=== PATIENT | male | born 1945 | race Caucasian/White ===

== ENCOUNTER 2019-02-10 01:34 | Observation (INO) ==
[2019-02-10] MEDS ORDERED: MORPHINE IV ONE (02:04)
[2019-02-10 02:51] LABS: IMM GRAN# 0.02 X1000 (0.0-0.04); IMM GRAN% 0.4 % (0.0-0.5)
[2019-02-10 03:39] LABS: INR 1.07; PROTIME 14.1 Seconds (11.0-16.0)
[2019-02-10 03:45] LABS: PTT HEPARIN PROTOCOL 27.2 Seconds
[2019-02-10 03:49] LABS: BASO# 0.02 X1000 (0.0-0.2); BASO% 0.4 % (0.0-0.8); EOS# 0.39 X1000 (0.0-0.7); EOS% 7.1 % (0.0-10.0); HEMATOCRIT 41.4 % (42.0-52.0); HEMOGLOBIN 14.3 g/dL (14.0-18.0); LYMPH# 1.59 X1000 (1.2-3.4); LYMPH% 29.1 % (20.5-51.1); MCH 31.7 PG (27-31); MCHC 34.5 g/dL (33-37); MCV 91.8 FL (81-99); MPV 10.5 FL (7.4-10.4); NEUT# 2.87 X1000 (1.4-6.5); NEUT% 52.4 % (42.2-75.2); PLT 151 X1000 (130-400); RBC 4.51 XMIL (4.7-6.1); RDW 13.6 % (11.5-14.5); WBC 5.47 X1000 (4.8-10.8)
[2019-02-10 03:53] LABS: AGAP 14; ALB/GLOB RATIO 1.9; ALBUMIN 4.1 g/dL (3.5-5.0); ALKALINE PHOSPHATASE 52 U/L (32-122); BUN 18 mg/dL (8-22); CALCIUM 9.6 mg/dL (8.8-10.2); CHLORIDE 103 mmol/L (98-107); COSMO 289; CREATININE 0.8 mg/dL (0.7-1.2); ESTIMATED GFR > 60; GLUCOSE 128 mg/dL (70-104); GOT 31 U/L (10-34); GPT 35 U/L (10-44); POTASSIUM 3.7 mmol/L (3.5-5.1); SODIUM 143 mmol/L (136-145); TCO2 26 mmol/L (25-35); TOTAL BILIRUBIN 0.77 mg/dL (0.20-1.00); TOTAL PROTEIN 6.3 g/dL (6.3-8.3)
[2019-02-10 03:57] LABS: CK PROFILE 373 U/L (24-204)
--- NOTE | 2019-02-10 04:04 | PROVIDER DOCUMENTATION ---
HPI-General Adult - General Chief Complaint: Chest Pain Stated Complaint: CHEST PAIN HISTORY OR HEART Time Seen by Provider: 02/10/19 01:52 Source: patient Allergies/Adverse Reactions: Patient Allergies Allergy/AdvReac Type Severity Reaction Status Date / Time No Known Allergies Allergy Verified 09/07/14 09:31 Home Medications: Home Medication List Medication Instructions Recorded Confirmed Last Taken Type Losartan [Cozaar] 100 mg PO DAILY 03/18/12 08/31/18 09/07/14 08:00 History Simvastatin 40 mg PO HS 03/18/12 08/31/18 09/06/14 21:00 History Hydroxyzine HCl 25 mg PO DAILY #10 tablet 09/07/14 Unknown Rx Pantoprazole [Protonix] 40 mg PO DAILY@0700 09/07/14 08/31/18 09/07/14 08:00 History Prednisone 10 mg PO DIRECTED #9 tablet 09/07/14 Unknown Rx Aspirin [Lo-Dose Aspirin EC] 81 mg PO DAILY 08/31/18 08/31/18 Unknown History Metformin HCl [Metformin HCl ER] 500 mg PO DAILY 08/31/18 08/31/18 Unknown History Minocycline [Minocin] 100 mg PO DAILY 08/31/18 08/31/18 Unknown History Prasugrel [Effient] 10 mg PO DAILY 08/31/18 08/31/18 Unknown History Tamsulosin HCl 08/31/18 08/31/18 Unknown History Tamsulosin [Flomax] 0.4 mg PO DAILY 08/31/18 08/31/18 Unknown History - History of Present Illness -Gen Adult Nature of Presenting Problems: Pt presents with cp, started tonight, awoke from sleep with pain, substernal, pressure, no radiation, pmh of AMI and stents, pt denies f/c, ibarra, sob, cough, ap, n/v/d. pt is lying in bed in no acute distress. Location of Pain/Injury: reports: chest Pain Radiation: reports: no radiation Quality of Pain: reports: pressure Severity: reports: moderate Onset/Duration: reports: 1-3 hours ago Timing: reports: still present Context/Activities at Onset: reports: none Modifying Factors: improves with: nothing Associated Symptoms: reports: denies symptoms Similar Symptoms Previously?: Yes Recently seen or treated by another doctor?: No Review of Systems - Adult - REVIEW OF SYSTEMS - ADULT Constitutional: reports: no symptoms reported Eyes: reports: no symptoms reported Ears, Nose, Mouth & Throat: reports: no symptoms reported Cardiovascular: reports: see HPI Respiratory: reports: no symptoms reported Gastrointestinal: reports: no symptoms reported Genitourinary: reports: no symptoms reported Musculoskeletal: reports: no symptoms reported Integumentary: reports: no symptoms reported Neurological: reports: no symptoms reported Psychiatric: reports: no symptoms reported Endocrine: reports: no symptoms reported Hematologic/Lymphatic: reports: no symptoms reported Allergic/Immunologic: reports: no symptoms reported All Other Systems: Reviewed and Negative Past History - Adult - PAST MEDICAL HISTORY-ADULT Review of Records: reports: Old Records Reviewed, Nursing Assessment Review, Medications Reviewed, Social history reviewed & non-contributory. Major Childhood Illnesses: reports: denies history Cardiovascular: reports: HTN, hyperlipidemia Respiratory: reports: denies history Gastrointestinal: reports: denies history Obstetrical/Gynecological: reports: denies history Genitourinary: reports: denies history Musculoskeletal: reports: denies history Neurological: reports: denies history Psychiatric: reports: denies history Endocrine/Immune: reports: denies history Other Conditions: reports: denies history - PRIOR SURGERIES/PROCEDURES Surgical/Procedure History: reports: back/neck Physical Exam-General - PHYSICAL EXAM-ADULT Initial Vital Signs Reviewed: Yes - CONSTITUTIONAL General Appearance: appears well - EYES Eyes: PERRL/EOMI - HEAD, EARS, NOSE, MOUTH & THROAT HENMT: normocephalic/atraumatic - NECK Neck: normal inspection - RESPIRATORY Respiratory: lungs clear, no respiratory distress, no accessory muscle use - CARDIOVASCULAR Cardiovascular: regular rate, rhythm - GASTROINTESTINAL (ABDOMEN) Abdominal Exam: normal bowel sounds, non tender, soft - LYMPHATIC Lymphatic: no adenopathy - MUSCULOSKELETAL Back Exam: normal inspection Extremity: normal range of motion - SKIN Integumentary: normal color - NEUROLOGIC Neurologic: grossly normal - PSYCHIATRIC Psych/Mental Status: normal mood/affect Progress - PLAN OF CARE/RESULTS Progress/Plan/Lab Results: Vital Signs - 8 hr 02/10/19 01:42 Temperature 98.3 F Pulse Rate 88 Respiratory Rate 18 Blood Pressure 138/87 O2 Sat by Pulse Oximetry 99 Laboratory Results - last 24 hr 02/10/19 02/10/19 02/10/19 02:25 02:25 02:25 WBC 5.47 RBC 4.51 L Hgb 14.3 Hct 41.4 L MCV 91.8 MCH 31.7 H MCHC 34.5 RDW Std Deviation 13.6 Plt Count 151 MPV 10.5 H Immature Gran % (Auto) 0.4 Neut % (Auto) 52.4 Lymph % (Auto) 29.1 Haakon % (Auto) 11.0 H Eos % (Auto) 7.1 Baso % (Auto) 0.4 Immature Gran # (Auto) 0.02 Neut # (Auto) 2.87 Lymph # (Auto) 1.59 Haakon # (Auto) 0.60 H Eos # (Auto) 0.39 Baso # (Auto) 0.02 PT 14.1 INR 1.07 PTT (Heparin Protocol) 27.2 Sodium 143 Potassium 3.7 Chloride 103 Carbon Dioxide 26 Anion Gap 14 BUN 18 Creatinine 0.8 Estimated GFR/1.73 m2 > 60 BUN/Creatinine Ratio 23 Glucose 128 H Calculated Osmolality 289 Calcium 9.6 Total Bilirubin 0.77 AST 31 ALT 35 Alkaline Phosphatase 52 Troponin T Total Protein 6.3 Albumin 4.1 Globulin 2.2 Albumin/Globulin Ratio 1.9 02/10/19 02:25 WBC RBC Hgb Hct MCV MCH MCHC RDW Std Deviation Plt Count MPV Immature Gran % (Auto) Neut % (Auto) Lymph % (Auto) Haakon % (Auto) Eos % (Auto) Baso % (Auto) Immature Gran # (Auto) Neut # (Auto) Lymph # (Auto) Haakon # (Auto) Eos # (Auto) Baso # (Auto) PT INR PTT (Heparin Protocol) Sodium Potassium Chloride Carbon Dioxide Anion Gap BUN Creatinine Estimated GFR/1.73 m2 BUN/Creatinine Ratio Glucose Calculated Osmolality Calcium Total Bilirubin AST ALT Alkaline Phosphatase Troponin T < 0.010 Total Protein Albumin Globulin Albumin/Globulin Ratio Orders Category Date Time Status cxr [CHEST-1 VIEW] [RAD] Stat Exams 02/10/19 02:02 Taken CBC WITH ELECTRONIC DIFF [HEME] Stat Lab 02/10/19 02:25 Completed CK PROFILE [SP CHEM] Stat Lab 02/10/19 02:25 Results COMPREHENSIVE METABOLIC PANEL [CHEM] Stat Lab 02/10/19 02:25 Results PROTIME WITH INR [COAG] Stat Lab 02/10/19 02:25 Completed PTT HEPARIN PROTOCOL [COAG] Stat Lab 02/10/19 02:25 Completed TROPONIN T Stat Lab 11/22/19 02:25 Completed Morphine Med 02/10/19 02:04 Discontinued 4 mg IV NOW ONE Result Diagrams: 02/10/19 02:25 02/10/19 02:25 Departure - Departure Date of Disposition Decision: 02/10/19 Time of Disposition Decision: 04:57 DIAGNOSIS: Chest pain Qualifiers: Chest pain type: other chest pain Qualified Code(s): R07.89 - Other chest pain; R07.8 - Other chest pain Disposition: HOME 01 Certified Medical Emergency: Emergent Condition: Stable Referrals and Follow-Ups: Aakash Moreno MD [Primary Care Provider] - - Critical Care Note This patient required my direct & personal management of CC.: No Attestation - Physician/ CHARLES Attestation Patient care was provided by Advanced Practice Provider:: No The physician spent face to face time with patient:: Yes Advanced Practice Provider documentation review:: Supervising physician onsite and consulted in the evaluation and care of this patient. The physician did have a face to face encounter with the patient.
[2019-02-10 04:36] LABS: CK INDEX 2.8 (0.0-2.5); CK-MB 10.51 ng/mL (0.0-5.0)
--- NOTE | 2019-02-10 05:03 | EKG Report ---
Test Performed on : 02/10/2019 01:39:43 AM Test Reason : CP Blood Pressure : / mmHG Vent. Rate : 085 BPM Atrial Rate : 086 BPM P-R Int : 000 ms QRS Dur : 074 ms QT Int : 350 ms P-R-T Axes : 000 010 055 degrees QTc Int : 416 ms Accelerated Junctional rhythm. Septal infarct , age undetermined Abnormal ECG When compared with ECG of 31-AUG-2018 13:42, Junctional rhythm. has replaced Atrial fibrillation. Septal infarct is now present Unconfirmed Result
--- NOTE | 2019-02-10 05:35 | Diag Imaging Result Doc PS360 ---
EXAM: CHEST-1 VIEW HISTORY: chest pain TECHNIQUE: Single view COMPARISON: 08/02/2014 FINDINGS: The lungs are well expanded. The heart is not enlarged. The vessels are not distended. There are no infiltrates. No effusion identified. IMPRESSION: Negative exam. Electronically signed by Sandeep Garcia 02/10/2019 5:33 AM
[2019-02-10] MEDS ORDERED: NITROGLYCERIN SL PRN (08:08)
[2019-02-10] MEDS ORDERED: ZOFRAN IV PRN (08:08)
[2019-02-10] MEDS ORDERED: TYLENOL PO PRN (08:08)
[2019-02-10] MEDS ORDERED: PRILOSEC PO SCH (08:08)
[2019-02-10] MEDS ORDERED: ASPIRIN PO SCH (09:00)
[2019-02-10 09:21] LABS: CK INDEX 2.9 (0.0-2.5); CK-MB 9.9 ng/mL (0.0-5.0)
[2019-02-10] MEDS: HUMULIN R SUBQ SCH ×2 (11:47→13:59)
--- NOTE | 2019-02-10 12:11 | HISTORY AND PHYSICAL ---
PRIMARY CARE PHYSICIAN: Dr. Moreno CHIEF COMPLAINT: Chest pain. HISTORY OF PRESENTING ILLNESS: A 73-year-old male with a history of coronary artery disease diabetes mellitus type 2, hypertension, and hyperlipidemia, who presented to emergency department with a 1-day history of having chest pain. He described it as pressure-like and burning and states that it would not subside. The patient was evaluated in the emergency department. He was given morphine, and his chest pain had some improvement. Due to his presenting symptoms, he will require admission for further management. At the time of my examination, patient denied any headache, fever, chills, nausea, vomiting, diarrhea, hemoptysis, melena, or weight changes, but complained of chest pain. PAST MEDICAL HISTORY: Includes coronary artery disease, diabetes mellitus type 2, hypertension, and hyperlipidemia. PAST SURGICAL HISTORY: Coronary stent, hernia repair, and back surgery. ALLERGIES: No known drug allergies. CURRENT MEDICATIONS: 1. Aspirin 81 mg p.o. daily. 2. Hydroxyzine 25 mg p.o. daily. 3. Losartan 100 mg p.o. daily. 4. Metformin 500 mg p.o. daily. 5. Pantoprazole 40 mg p.o. daily. 6. Effient 10 mg p.o. daily. 7. Prednisone 10 mg as directed. 8. Simvastatin 40 mg p.o. at bedtime. 9. Tamsulosin 0.4 mg p.o. daily. SOCIAL HISTORY: No history of smoking. Admits to social alcohol use. Denies any illicit drug use. FAMILY HISTORY: Positive for coronary artery disease in father. REVIEW OF SYSTEMS: Fourteen point review of system as listed in HPI. Other systems negative. PHYSICAL EXAMINATION: GENERAL: Cooperative, friendly male who is resting more comfortably now. VITAL SIGNS: Temperature 98.3 degrees, pulse 88, respiration 18, and blood pressure 138/87. HEENT: Atraumatic, normocephalic. Extraocular movements intact. PERRLA. NECK: Supple. CHEST: Clear to auscultation. CARDIOVASCULAR: Regular rate and rhythm. ABDOMEN: Soft. Positive bowel sounds. EXTREMITIES: No edema. NEUROLOGIC: He is awake, alert, and oriented x3. : No bladder distention. SKIN: Warm. LABORATORIES AND STUDIES: WBCs 5.47, hemoglobin 14.3, hematocrit 41.4, and platelets 151,000. Sodium 143, potassium 3.7, chloride 103, CO2 is 26, BUN is 18, creatinine 0.8, glucose 128, and troponin is 0.010. ASSESSMENT: This is a 73-year-old male with a history of coronary disease, diabetes mellitus type 2, hypertension, and hyperlipidemia, who presented to the emergency department with a 1-day history of having chest pain. We will place the patient for observation for further evaluation and management. 1. Chest pain. 2. Coronary artery disease. 3. Diabetes mellitus type 2. 4. Hypertension. PLAN: 1. We will admit patient to medical floor with telemetry. 2. We will continue with cardiac workup. Check EKG and serial cardiac enzymes. Have patient continue on aspirin. We will use sublingual nitroglycerin and morphine p.r.n. chest pain. 3. We will consult Cardiology. 4. Monitor blood glucose. Put patient on sliding scale insulin regimen. 5. We will restart her home medications, and monitor blood pressure closely. 6. The patient on DVT prophylaxis with SCD's. 7. We will continue to follow and reassess. Make further recommendation based on his clinical course. cc: Derick Stafford MD
[2019-02-10 12:41] VITALS: BP 123/64
[2019-02-10] MEDS ORDERED: MINOCIN PO PRN (15:08)
[2019-02-10 17:03] LABS: DIRECT LDL 77 mg/dL; LIPASE 22 U/L (13-60); URIC ACID 5.7 mg/dL (3.4-7.0)
[2019-02-10 17:26] LABS: CK INDEX 3.2 (0.0-2.5); CK-MB 7.85 ng/mL (0.0-5.0)
--- NOTE | 2019-02-10 18:22 | ECHO REPORT ---
ORDER DATE: 02/10/2019 ECHOCARDIOGRAPHIC MEASUREMENTS: 1. Interventricular septum 1.0. 2. Left ventricular posterior wall 1.0. 3. Diastolic diameter 4.4 4. Left atrium 3.7. 5. Aorta 3.4. SUMMARY OF TWO-DIMENSIONAL IMAGIN. Aortic valve leaflets are trileaflet. 2. Pulmonic valve is normal. 3. Tricuspid valve is normal. 4. Mitral valve is normal. There is mild left atrial enlargement. 5. There is mild mitral regurgitation, mild tricuspid regurgitation. Peak velocity across the tricuspid valve was 2.5 m/sec. 6. Pulmonary artery systolic pressure of 35 mmHg. 7. Peak velocity across the aortic valve less than 2 m/sec by Doppler studies. There is no aortic stenosis or regurgitation. Normal left ventricular cavity size. Estimated ejection fraction of 65%. 8. There is no pericardial effusion or obvious intracardiac mass or thrombus seen. cc: MD Marquise Reid MD
[2019-02-10] MEDS ORDERED: ZOCOR PO SCH (21:00)
[2019-02-10] MEDS ORDERED: ASPIRIN EC PO SCH (21:00)
--- NOTE | 2019-02-11 04:06 | CARDIOLOGY CONSULTATION ---
DATE: 02/10/2019 [facility] - CEFTRIAXONE SODIUM: Hospitalist service. REASON FOR CONSULTATION: Patient with chest pain. PRIMARY LOAD OUT PERSON: Dr. Carney and the [facility]. PRIMARY PHYSICIAN: Dr. Aakash Moreno. CHIEF COMPLAINT: Chest pain. HISTORY: Mr. Gupta is 73 years of age, male who was in his usual state of health. Yesterday, he went to play golf in the morning and at night he went to the country club. At about 7:30 p.m., he ate a dinner of quesadilla. He said that he only ate half of the usual portion, however, there was quite a bit of cheese there. Anyway, he woke up at 1 in the morning complaining of severe substernal chest discomfort that really scared him. It was in the upper part of the chest. It was unlike the pain that he had experienced when he had his stents, particularly very different than the pain that he had after the most recent stent. At any rate, he chose to come into the ER and, of course, they put him in the hospital for more testing. Thus far, they have done 1 EKG at 1:39 in the morning that shows sinus rhythm with a first-degree AV block and question of septal scar. The computer, unfortunately, is calling it to be something else, but is just sinus rhythm. A chest x-ray was done in the ER that showed a negative exam. The troponin levels have been checked and they are twice negative. CPKs and CK-MB fraction were 373 and 337. LFTs are normal. The patient is feeling better. I am seeing him at about 1:30 p.m. He is not having any more pains. PAST CARDIAC HISTORY: Positive for coronary heart disease. He states that in 2001, when he was living in [place], [place], he developed pains that, at that time, he thought were indigestion- like pains, he ended up having a stent to the circumflex coronary artery in the year 2001. Then, last year he developed exertional chest discomfort and they took him to the cath lab tech and Dr. Eric Carney did a stent to the LAD on 01/03/2018. He has not had any further problems since then. He completed 1 year of aspirin and prasugrel without complications. He has been active. He exercises regularly 6 days a week for his back. PAST MEDICAL HISTORY: Positive for diabetes mellitus type 2, hyperlipidemia, acid reflux. PAST SURGICAL HISTORY: He has had back surgery twice, one about 30 years ago, the second about 8 years ago in [place]. He has had a right inguinal hernia repair. The patient says that about 3 or 4 days ago he had an upper endoscopy by Dr. Russell, who also performed a biopsy of a polyp from the upper intestine. The patient has been diagnosed with venous reflux and he is going to undergo a special surgery for that. That involves the right leg. SOCIAL HISTORY: He retired from the [employer] about 10 years ago or so. He moved to [place] and he has been living here with his . He has 2 children, ages 46 and 41. The patient quit smoking many years ago. FAMILY HISTORY: His father had coronary artery bypass surgery in his late 60s. REVIEW OF SYSTEMS: He really has no major issues other than occasional back pain, occasional heartburn. The pain that he experienced last night was much worse than any pain that he has experienced before. He has suffered from kidney stones in the past. HOME MEDICATIONS: Included aspirin 81 daily, hydrochlorothiazide 12.5 mg daily, losartan 100 mg daily, metformin 500 mg daily, minocycline 100 mg daily, Protonix 40 mg daily, simvastatin 5 mg at bedtime, Flomax 0.4 mg daily. ALLERGIES: There are no allergies. PHYSICAL EXAMINATION: Vital signs: Blood pressure 123/64, temperature 98.3 degrees, pulse 61, respirations 21. General: He is awake, alert, oriented, in no distress. HEENT: Unremarkable. Chest: Clear to auscultation and percussion. Heart: Sounds regular and rhythmic. No gallop or murmur. Abdomen: Soft, nontender. No masses or hepatomegaly. Extremities: Good pulses. No peripheral edema. Neurologic: Nonfocal. Moves 4 extremities. BLOOD WORK: Includes albumin, BUN, creatinine, sodium, potassium, all of them are normal. IMPRESSION: 1. Patient who has chest pain. This sounds very atypical, really noncardiac. It has no resemblance to the pains that led to his prior stent to the circumflex nor to the prior stent to the LAD. 2. History of hypertension. 3. History of hyperlipidemia. 4. History of chronic back pain. 5. History of venous reflux. 6. History of gastroesophageal reflux disease. RECOMMENDATION: At this time, we will do a resting gated myocardial perfusion study. If that study is normal, he may go home. We will do 1 more sets of cardiac enzymes on him. We will also check a direct LDL, a hemoglobin A1c and a proBNP level to make sure that everything else is stable. After that, I guess he can be discharged. Thank you, again, for the opportunity to participate in his evaluation. He wants to follow up with his regular nib finisher in [place]. cc: Marquise Licea MD MTD
[2019-02-11] MEDS ORDERED: PROTONIX PO SCH (07:00)
[2019-02-11] MEDS ORDERED: HYDROCHLOROTHIAZIDE PO SCH (09:00)
[2019-02-11] MEDS ORDERED: FLOMAX PO SCH (09:00)
[2019-02-11] MEDS ORDERED: COZAAR PO SCH (09:00)
--- NOTE | 2019-02-11 18:34 | DISCHARGE SUMMARY ---
ADMISSION DATE: 02/10/2019 DISCHARGE DATE: 02/10/2019 PRIMARY CARE PHYSICIAN: Dr. Aakash Moreno. ADMISSION DIAGNOSES: 1. Chest pain. 2. Coronary artery disease. 3. Diabetes type 2. 4. Hypertension. DISCHARGE DIAGNOSIS: 1. Chest pain. 2. Coronary artery disease. 3. Diabetes type 2. 4. Hypertension. SUMMARY OF FINDINGS: This is a 73-year-old male who presented to the emergency department with a 1-day history of having chest pain described it as a pressure-like and burning that would not subside, was admitted, had 2 sets of cardiac enzymes that were negative. EKG with an accelerated junctional rhythm at 85. Cardiology was consulted and he had a myocardial perfusion scan today that was normal so it is felt that he can safely be discharged home. DISCHARGE MEDICATIONS: Aspirin 81 mg p.o. at bedtime, hydrochlorothiazide 12.5 mg p.o. daily, losartan 100 mg p.o. daily, minocycline 100 mg p.o. daily, simvastatin 40 mg p.o. at bedtime, Flomax 0.4 mg p.o. daily and metformin 500 mg p.o. daily. He does need to have an ultrasound of the right upper quadrant in approximately 1 week. FOLLOWUP: With his primary care physician. TIME SPENT: 35 minutes. Dictated by PADMINI Hardy for Rey Pace MD cc: MD Rey Cardona MD
--- NOTE | 2019-02-14 15:56 | Diag Imaging Result Document ---
PROCEDURE NAME: MYOCARDIAL PERFU SCAN, REST - 02/10/2019 INDICATION: This is a 73-year-old male who presented with chest pain. He has history of coronary heart disease. DESCRIPTION OF PROCEDURE: The patient received a rest injection of technetium 99 sestamibi 32.9 mCi. Multiple tomographic views of the cardiac structures were obtained. A 16-bin protocol was used. SUMMARY OF MYOCARDIAL PERFUSION PORTION OF THE STUDY: Resting gated views of the left ventricle showed normal myocardial perfusion. There is no evidence of any ischemic defect or defect at rest. The polar plots basically shows uniform distribution of radiotracer throughout all the myocardial segments. Gated SPECT using a 16-bin gating protocol shows ejection fraction of 80% with normal ventricular volumes and no evidence of any wall motion abnormality. The lung/heart ratio is normal. CONCLUSIONS: In summary, this study shows: 1. Essentially normal resting myocardial perfusion. This practically rules out ischemia at rest. 2. Normal left ventricular systolic function/normal ejection fraction at rest estimated at 80%. Normal ventricular volumes. Clinical correlation is recommended. cc: Marquise Licea MD
== END 2019-02-10 17:41 | disposition home or self-care (01) ==
LOC: ED 01:34 → 3N 07:38 → SUATTDRO 07:38 → INTOOBSV 07:38
PROVIDERS: ATTEND Internal Medicine